=== PATIENT | male | born 1960 | race Caucasian/White ===

== ENCOUNTER 2017-11-17 19:23 | Observation (INO) | payer SELFPAY ==
[2017-11-17] MEDS ORDERED: Famotidine/PF 20 mg/2ml Vial ONE (19:53)
[2017-11-17] MEDS ORDERED: EPINEPHrine 1 MG/ML AMP ONE (22:08)
[2017-11-17] MEDS ORDERED: diphenhydrAMINE 50 MG/ML VIAL ONE (22:09)
[2017-11-18] MEDS ORDERED: EPINEPHrine 1 MG/ML AMP IM PRN ×2 (01:47→07:45)
[2017-11-18] MEDS ORDERED: Ondansetron ODT 4 MG TAB SL PRN (01:51)
[2017-11-18] MEDS ORDERED: Ondansetron HCl/PF 4 MG/2 ML Vial IVP PRN ×2 (01:51→07:01)
[2017-11-18] MEDS ORDERED: Sodium Chloride 0.45% 1,000 ML IV SCH (02:00)
[2017-11-18 02:31] VITALS: BMI 40.1
[2017-11-18] MEDS ORDERED: diphenhydrAMINE 50 MG/ML VIAL IVP SCH (06:00)
[2017-11-18] MEDS ORDERED: Acetaminophen 325 MG TAB PO PRN (07:01)
[2017-11-18] MEDS ORDERED: Sodium Chloride 0.65% Nasal 44 ML BOT EA NARE PRN (07:01)
[2017-11-18] MEDS ORDERED: hydrALAZINE 20 MG/ML VIAL SLOW IVP PRN (07:01)
[2017-11-18] MEDS ORDERED: Senokot 8.6 MG TAB PO PRN (07:01)
[2017-11-18] MEDS ORDERED: Dextrose 50% Abboject 50 ML SYRINGE SLOW IVP PRN (07:01)
[2017-11-18] MEDS ORDERED: Milk Of Magnesia 30 ML UDCUP PO PRN (07:01)
[2017-11-18] MEDS ORDERED: Ondansetron ODT 4 MG TAB PO PRN (07:01)
[2017-11-18] MEDS ORDERED: Dextrose 5% in Water 1,000 ML IV PRN (07:01)
[2017-11-18] MEDS ORDERED: Mag-Al 1200 mg/1200 mg/30 ML UDCUP PO PRN (07:01)
[2017-11-18] MEDS ORDERED: HumaLOG 300 UNITS/3 ML VIAL SC PRN ×2 (07:01)
[2017-11-18] MEDS ORDERED: Artificial Tears 18 DROP/0.9 ML EA EYE PRN (07:01)
[2017-11-18] MEDS ORDERED: Eucerin (Mineral Oil/Petrolatum,White) 30 gm Jar TOP PRN (07:01)
[2017-11-18] MEDS ORDERED: Zolpidem Tartrate 5 MG TAB PO PRN (07:01)
[2017-11-18] MEDS ORDERED: HYDROcodone/Acetaminophen 5/325 mg Tablet PO PRN (07:01)
[2017-11-18] MEDS ORDERED: Diabetic Tussin 200 MG/10 ML UDCUP PO PRN (07:01)
[2017-11-18] MEDS ORDERED: Loperamide HCl 2 MG CAP PO PRN (07:01)
[2017-11-18] MEDS ORDERED: Chloraseptic Spray 180 ml Bottle PO PRN (07:01)
[2017-11-18 07:25] LABS: #Lymphocytes 1.6 thou/uL (1.20-3.40); #Monocytes 0.6 thou/uL (0.11-0.59); #Neutrophils 11.3 thou/uL (1.40-6.50); %Basophils 0.2 % (0.0-1.0); %Eosinophils 0.2 % (0.0-10.0); %Lymphocytes 12.1 % (21.0-51.0); %Monocytes 4.5 % (0.0-10.0); Hematocrit 46.5 % (42.0-52.0); Mean Platelet Volume 7.4 fL (7.4-10.4); Red Blood Cell (RBC) Count 5.24 mill/uL (4.70-6.10); White Blood Cell (WBC) Count 13.6 thou/uL (4.8-10.8)
[2017-11-18 07:36] LABS: Hemoglobin A1c 5.7 % (4.0-6.0)
[2017-11-18 07:37] LABS: Anion Gap 12 mmol/L (10-20); BUN (Urea Nitrogen) 17 mg/dL (8.4-25.7); Calc. Creatinine Clearance 134 mL/min (70-130); Calcium 9.1 mg/dL (7.8-10.44); Carbon Dioxide 23 mmol/L (22-29); Chloride 107 mmol/L (98-107); Estimated GFR-MDRD 73
[2017-11-18] MEDS: Famotidine/PF 20 mg/2ml Vial SLOW IVP SCH ×2 (08:50→21:19)
[2017-11-18] MEDS: Sodium Chloride 0.9% 1,000 ML IV SCH ×2 (08:50→21:23)
[2017-11-18] MEDS ORDERED: methylPREDNISolone Sod Succ/PF 125 MG/2 ML VIAL IVP SCH (09:00)
--- NOTE | 2017-11-18 11:14 | HP ---
PRIMARY CARE PHYSICIAN: [facility] call admission. REASON FOR ADMISSION: Transfer from [facility] for allergic reaction /anaphylactic reaction. HISTORY OF PRESENT ILLNESS: A 57-year-old male who was initially evaluated at [facility] for generalized allergic reaction. The patient reports that symptoms started after eating a chicken at home. Patient took Benadryl before going to the emergency room, but his symptoms were not improving and that is why he went local emergency room. At local emergency room, patient was relatively hypotensive, tachypneic, and afebrile. He was given Solu-Medrol 125 mg, EpiPen 0.3 mg subcutaneous, Benadryl 50 mg IV and IV fluid, and subsequently this patient was planned for discharge, but the patient started eating crackers and after that his symptoms returned and that is why they sent him to our emergency room and subsequently the patient was admitted for close monitoring. This patient reports that he has recurrent symptoms of allergic reaction after eating unknown food. The patient does not know, which food making him allergic reaction, but sometimes symptoms gets better with Benadryl, but this episodes were more severe and more worse and that is why he required emergency room visit. The patient does have this problem for a period of time, but he was not able to see predictive maintenance specialist because of lack of funding. Patient reports that now he started working and he is going to follow up with allergies specialist after this discharge. Initially, patient felt lip swelling, throat tightness and dizziness. The patient felt like he was going to pass out and he felt like something in his throat and he felt like alligator. He denies any currently chest pain. When I saw this patient in the morning, he was feeling much better. His symptoms have not returned since last symptoms. He denies any shortness of breath, stridor, urticaria, itching, nausea, vomiting, diarrhea. REVIEW OF SYSTEMS: The following complete review of systems was negative, unless otherwise mentioned in the HPI or below: CONSTITUTIONAL: Weight loss or gain, ability to conduct usual activities. SKIN: Rash, itching. EYES: Double vision, pain. ENT/MOUTH: Nose bleeding, neck stiffness, pain, tenderness. CARDIOVASCULAR: Palpitations, dyspnea on exertion, orthopnea. RESPIRATORY: Shortness of breath, wheezing, cough, hemoptysis, fever or night sweats. GASTROINTESTINAL: Poor appetite, abdominal pain, heartburn, nausea, vomiting, constipation, or diarrhea. GENITOURINARY: Urgency, frequency, dysuria, nocturia. MUSCULOSKELETAL: Pain, swelling. NEUROLOGIC/PSYCHIATRIC: Anxiety, depression. ALLERGY/IMMUNOLOGIC: Skin rash, bleeding tendency. Please see my HPI for pertinent positives and negatives. All other review of system reviewed and negative except as mentioned in the HPI. PAST MEDICAL HISTORY: Reviewed and negative. PAST SURGICAL HISTORY: Tonsillectomy. PAST PSYCHIATRIC HISTORY: Reviewed and negative. SOCIAL HISTORY: Patient lives at home alone. No history of tobacco, alcohol or illicit drug abuse. FAMILY HISTORY: No strong family history of premature coronary artery disease, stroke or cancer. CURRENT HOME MEDICATION: patient is not taking any medication at home ALLERGY: No known drug allergy. PHYSICAL EXAMINATION: VITAL SIGNS: Currently, blood pressure 136/86, pulse 75, respiratory rate 17, temperature 98.2, saturation 96% on 2 liters oxygen. Weight 117.9 kilograms. GENERAL: Patient is currently alert, oriented, no acute distress. HEAD: Normocephalic, atraumatic. EYES: Pupils round, reactive to light. Extraocular muscles intact. ENT: Oropharynx within normal limits. Moist mucous membranes. No oral lesions. No pharyngeal erythema, no exudate. NECK: Supple, no JVD, no thyromegaly, no carotid bruit, no jugular venous distention. LUNGS: Clear to auscultation without any rhonchi or rales. CARDIAC: S1, S2 regular without any murmur. ABDOMEN: Soft, obesity present. Bowel sounds present, nontender, nondistended. No organomegaly, no mass, no suprapubic tenderness. BACK: Unremarkable, no CVA tenderness. EXTREMITIES: Upper extremity: Passive movement of all joints are normal. Lower extremity: No edema. Good peripheral pulsation. SKIN: No skin rash. HEMATOLOGICAL: No lymphadenopathy. PSYCHIATRIC: Normal affect. NEUROLOGIC: Nonfocal examination. SIGNIFICANT LABS: CBC: WBC 11.9, hemoglobin 17.0, platelet 230. BMP: Sodium 140, potassium 3.9, chloride 103, carbon dioxide 24, BUN 19, creatinine 1.73, glucose 247, calcium 8.6. LFT: AST 20, ALT 22, alkaline phosphatase 70, albumin 3.9. Hemoglobin A1c 5.7. ASSESSMENT AND PLAN/IMPRESSION: 1. Anaphylactic reaction. After food, the patient does not know the what type of food allergy he has and that is why I advised him to go to predictive maintenance specialist to identify his typical allergy to any component of food and at this point, the patient had treatment with Solu-Medrol, Benadryl in the Emergency Room and subsequently the patient had delayed reaction and that is why we kept in hospital. At this point, I will continue with Solu-Medrol 20 mg IV q.6 hourly, Benadryl 50 mg IV q.8 hourly and EpiPen p.r.n. basis. We will also continue Pepcid 20 mg IV b.i.d. We will monitor him for 24 hours and subsequently I will consider discharging him home tomorrow morning. 2. Hyperglycemia, most likely related with steroid, but hemoglobin A1c is 5.7. I provided weight loss education, healthy lifestyle measure discussion and diabetes education is given. At this point, the patient will need Accu-Chek while on steroids. We will monitor hyperglycemia. 3. Acute kidney injury. The patient is given IV fluid and now his creatinine is improved. 4. Morbid obesity with BMI of 40. Dietary education given, weight loss education given. Healthy lifestyle measures discussed with the patient. 5. Deep venous thrombosis prophylaxis not needed because we are expecting discharge tomorrow. 6. Gastrointestinal prophylaxis, Pepcid 20 mg IV b.i.d. 7. Code status: The patient is FULL CODE. Patient does not have any surrogate decision maker. Disposition plan within 24 hours. Plan of care discussed with the patient in detail. MTDD
[2017-11-18 13:23] LABS: Bilirubin Negative (Negative); Blood, Urine Negative (Negative); Glucose, Urine (Dipstick) 100 mg/dL (Negative); Ketone, Urine Negative (Negative); Nitrite Negative (Negative); Protein, Urine (Dipstick) Negative (Neg-Trace)
[2017-11-18 13:25] LABS: Bacteria/HPF None Seen HPF (None Seen); Hyaline Casts/LPF 0-3 HYALINE CAST LPF (0-3 Hyaline); RBC/HPF 0-3 HPF (0-3); Squamous Epithelial 0-3 HPF (0-3)
[2017-11-18] MEDS: diphenhydrAMINE 50 MG/ML VIAL IVP SCH ×2 (13:55→21:19)
[2017-11-19 04:39] LABS: #Lymphocytes 1.8 thou/uL (1.20-3.40); #Monocytes 0.6 thou/uL (0.11-0.59); #Neutrophils 12.5 thou/uL (1.40-6.50); %Basophils 0.1 % (0.0-1.0); %Eosinophils 0.2 % (0.0-10.0); %Lymphocytes 12.2 % (21.0-51.0); %Monocytes 4.2 % (0.0-10.0); Hematocrit 44.4 % (42.0-52.0); Red Blood Cell (RBC) Count 4.94 mill/uL (4.70-6.10)
[2017-11-19 05:18] LABS: Anion Gap 9 mmol/L (10-20); BUN (Urea Nitrogen) 19 mg/dL (8.4-25.7); Calc. Creatinine Clearance 156 mL/min (70-130); Calcium 8.8 mg/dL (7.8-10.44); Carbon Dioxide 27 mmol/L (22-29); Chloride 107 mmol/L (98-107); Estimated GFR-MDRD 86
[2017-11-19] MEDS: diphenhydrAMINE 50 MG/ML VIAL IVP SCH (05:59)
[2017-11-19] MEDS: Famotidine/PF 20 mg/2ml Vial SLOW IVP SCH (08:26)
[2017-11-19 08:38] VITALS: BP 123/65; TEMP 98
--- NOTE | 2017-11-19 11:40 | DIS ---
DATE OF ADMISSION: 11/17/2017 DATE OF DISCHARGE: 11/19/2017 PRIMARY CARE PHYSICIAN: [facility] call admission. DISCHARGE DISPOSITION: Home. PRIMARY DISCHARGE DIAGNOSES: 1. Anaphylactic reaction to food component. 2. Hyperglycemia due to steroid. 3. Acute kidney injury, resolved. SECONDARY DISCHARGE DIAGNOSIS: Morbid obesity with BMI 40. PRIMARY PROCEDURE/OPERATION: None. RADIOLOGICAL INVESTIGATION: None. SIGNIFICANT LABORATORY DATA: WBC 15.0, hemoglobin 14.6, platelets 185. Sodium 139, potassium 4.3, c arbon dioxide 27, anion gap 9, BUN 19, creatinine 0.91, calcium 8.8. Hemoglobin A1c 5.7. Urinalysis showing glucosuria. DISCHARGE MEDICATIONS: Benadryl 25 mg p.o. t.i.d. for 3 days, Pepcid 20 mg p.o. b.i.d. for 3 days, p rednisone 20 mg p.o. daily for 3 days. CONTRAINDICATIONS: None. CODE STATUS: FULL CODE. INPATIENT CONSULTANTS: None. ALLERGIES: No known drug allergies. DISCHARGE PLAN: Post hospital, the patient is instructed to make appointment with strategic sourcing specialist to find out allergic reaction. HOSPITAL COURSE: A 57-year-old male with above-mentioned medical problems, who was brought to emerge ncy room. Initially, he was evaluated at [facility] for food allergy. He was having tong ue swelling after eating some unknown food. The patient was treated with Solu-Medrol and Benadryl in the emergency room. He was about to be discharged from the emergency room, but he had recurrent sym ptoms and that is why he was sent to our emergency room. We observed him; in 24 hours, he was having mild acute kidney injury and that is why he was given IV fluid. We treated him with Solu-Medrol, Be nadryl, and Pepcid. Upon discharge, we gave him 3 more days of Benadryl, Pepcid, and prednisone. Th e patient's symptoms completely improved. At this point, I gave him emphasis to make sure that he is following strategic sourcing specialist to identify the allergies. Dietary education was given. He has prediabetes and that is why I have advised him for weight loss, exercise, and diabetic diet. The patient is seen and examined at bedside today. All review of systems reviewed with him and qamar thurston. All new medication prescriptions sent to his pharmacy. PHYSICAL EXAMINATION: VITAL SIGNS: Today, his temperature 98.0, pulse 64, respiratory rate 18, blood pressure 123/65, weig ht 264 pounds. GENERAL: The patient is currently alert, awake, in no acute distress. HEAD: Normocephalic, atraumatic. EYES: Pupils round, reactive to light. Extraocular muscle intact. ENT: Oropharynx within normal limits. Moist mucous membranes. No oral lesions. No pharyngeal eryt lefty, no exudate. NECK: Supple, no JVD, no thyromegaly, no carotid bruit. LUNGS: Clear to auscultation without any rhonchi or rales. NEUROLOGIC: Nonfocal examination. The patient is medically stable for discharge today.
== END 2017-11-19 09:41 | disposition home or self-care (01) ==
LOC: ERS 19:23 → 2SW 22:55
PROVIDERS: ADMIT Internal Medicine; ATTEND Internal Medicine
DX: T78.09XA Anaphylactic reaction due to other food products, initial encounter (principal); R73.9 Hyperglycemia, unspecified; N17.9 Acute kidney failure, unspecified; E66.01 Morbid (severe) obesity due to excess calories; Z68.41 Body mass index [BMI] 40.0-44.9, adult; Z90.89 Acquired absence of other organs
CPT/HCPCS: 36415; 36416; 80048; 81001; 83036; 85025; 96361; 96372; 96374; 96375; 96376; G0378; J0171; J1200; J2920; S0028

== ENCOUNTER 2019-10-31 18:30 | Observation (INO) | payer SELFPAY ==
[2019-10-31 19:59] LABS: Troponin I 0.013 ng/mL (< 0.028)
[2019-10-31 21:28] VITALS: BMI 40.3
[2019-10-31 22:53] LABS: Troponin I 0.024 ng/mL (< 0.028)
[2019-11-01] MEDS ORDERED: Bisacodyl 10 MG SUPP PR PRN (01:07)
[2019-11-01] MEDS ORDERED: HYDROcodone/Acetaminophen 5/325 mg Tablet PO PRN (01:07)
[2019-11-01] MEDS ORDERED: Bisacodyl 5 MG TAB PO PRN (01:07)
--- NOTE | 2019-11-01 01:18 | PDOC.HHP ---
Hospitalist HPI - History of Present Illness Dizziness, chest pain History of Present Illness: Patient is a 59 year old male with PMH CAD with stents placed in heart last year at [facility] who presented to the ED for 1 week of intermittent chest pain, dizziness, headaches. He reports that the symptoms are positional, and he gets dizzy when moving around that lasts a few seconds and resolves, denies LOC. When he gets a headache it lasts longer and resolves when he takes over the counter headache medicines. The chest pain is a tightness, also intermittent. Patient had several stents placed at [facility] last year, he is noncompliant with medication and followup due to funding, and reports once he ran out of original medications did not refill them. He states this is due to funding, but when asked about why he didnt take ASA which is very cheap, he just states he bought some bottles but forgets to take. He does not have outpatient vp emerging [facility]. He presented to outside hospital at [facility] and was noted to have had a run of VTach while there. Currently patient was sleeping, denies current symptoms, feels well. Of note has very severe reported allergy to pepper, is in allergy list. Hospitalist ROS - Review of Systems Constitutional: denies: fever, chills, weakness Eyes: denies: pain, vision change ENT: denies: mouth swelling, throat pain Respiratory: denies: cough, shortness of breath Cardiovascular: reports: chest pain, palpitations, other (orthostasis). denies : orthopnea Gastrointestinal: denies: nausea, vomiting, abdominal pain Genitourinary: denies: dysuria, frequency Musculoskeletal: denies: neck pain, shoulder pain Skin: denies: rash, lesions Neurological: denies: weakness, numbness, incoordination Other: headaches All other systems reviewed; all pertinent +/- noted in HPI/Subj - Medication Medications: not taking any Hospitalist History - Past Medical History Other Medical History: CAD, stents pepper allergy - Past Surgical History Other Surgical History: stent placement tonsillectomy - Family History Other Family History: reviewed and noncontributory - Social History Smoking Status: Never smoker Alcohol: reports: None Drugs: reports: none - Exam General Appearance: NAD, awake alert Eye: PERRL, anicteric sclera ENT: normocephalic atraumatic, moist mucosa Neck: supple, symmetric, no JVD Heart: RRR, no murmur, no gallops Respiratory: CTAB, no wheezes, no rales, no ronchi Gastrointestinal: soft, non-tender, non-distended, normal bowel sounds Extremities: no cyanosis, no clubbing, no edema Skin: no lesions, no rashes Neurological: cranial nerve grossly intact, normal sensation to touch, no weakness, no focal deficits Musculoskeletal: normal tone, normal strength Psychiatric: normal affect, normal behavior, A&O x 3 Hospitalist Results - Labs Lab results: Troponin I 0.024 ng/mL (< 0.028) 10/31/19 22:16 - EKG Interpretation EKG: NSR, rate 64, no ST changes of acuity Hospitalist H&P A/P - Plan Plan: Patient is a 59 year old male with PMH CAD with stents placed in heart last year at [facility] who presented to the ED for 1 week of intermittent chest pain, dizziness, headaches. # dizziness, headache, chest pain - intermittent fast resolution, along with reported VT will need to rule out cardiac/rhythm causes of symptoms - admit to telemetry - trend cardiac enzymes - consult cardiology - orthostatics w/ next routine vitals # reported VT - seen at [facility], monitor on telemetry here, consult cardiology , trend BMP and Mg and replete K and Mg as needed # history of CAD w/ stents - noncompliant w/ meds, was done at [facility], will order ASA, statin, beta jessica and consult cardiology - case management consult # history of severe pepper allergy - noted, in list above
[2019-11-01] MEDS ORDERED: Aspirin 325 MG TAB PO SCH (01:30)
[2019-11-01 02:02] LABS: Troponin I Less than 0.010 ng/mL (< 0.028)
[2019-11-01] MEDS: Acetaminophen 325 MG TAB PO PRN ×2 (04:52→20:14)
[2019-11-01 05:34] LABS: #Basophils 0.1 thou/uL (0.0-0.2); #Eosinphils 0.2 thou/uL (0.0-0.7); #Lymphocytes 4.1 thou/uL (1.20-3.40); #Monocytes 0.8 thou/uL (0.11-0.59); #Neutrophils 6.3 thou/uL (1.40-6.50); %Basophils 0.8 % (0.0-1.0); %Lymphocytes 35.9 % (21.0-51.0); %Monocytes 6.9 % (0.0-10.0); %Neutrophils 54.5 % (42.0-75.0); Hemoglobin 15.4 g/dL (14.0-18.0); Mean Corpuscular HGB CONC 33.2 g/dL (32.0-36.0); Mean Corpuscular Hemoglobin 28.9 pg (27.0-31.0); Mean Corpuscular Volume 86.9 fL (78.0-98.0); Mean Platelet Volume 8.3 fL (7.4-10.4); Platelet Count 197 thou/uL (130-400); RBC Distribution Width 12.4 % (11.5-14.5); Red Blood Cell (RBC) Count 5.35 mill/uL (4.70-6.10); White Blood Cell (WBC) Count 11.5 thou/uL (4.8-10.8)
[2019-11-01 05:57] LABS: Anion Gap 13 mmol/L (10-20); BUN (Urea Nitrogen) 17 mg/dL (8.4-25.7); Calc. Creatinine Clearance 123 mL/min (70-130); Carbon Dioxide 29 mmol/L (22-29); Chloride 103 mmol/L (98-107); Estimated GFR-MDRD 67; Glucose 109 mg/dL (70-105); Magnesium 2.2 mg/dL (1.6-2.6); Potassium 4.3 mmol/L (3.5-5.1); Sodium 141 mmol/L (136-145)
[2019-11-01 07:43] LABS: Troponin I 0.012 ng/mL (< 0.028)
[2019-11-01] MEDS ORDERED: diphenhydrAMINE 25 MG CAP PO PRN (08:30)
[2019-11-01] MEDS ORDERED: Famotidine 20 MG TAB PO PRN (08:30)
[2019-11-01] MEDS ORDERED: predniSONE 20 MG TAB PO PRN (08:30)
[2019-11-01] MEDS ORDERED: Aspirin 81 mg Enteric Coated Tablet PO SCH (09:00)
[2019-11-01] MEDS ORDERED: Meclizine HCl 25 MG TAB PO PRN (12:22)
[2019-11-01] MEDS ORDERED: methylPREDNISolone Sod Succ/PF 125 MG/2 ML VIAL IVP SCH (12:30)
[2019-11-01] MEDS ORDERED: Meclizine HCl 25 MG TAB PO SCH (12:30)
[2019-11-01] MEDS: Metoprolol Tartrate 25 MG TAB PO SCH ×2 (12:56→20:12)
[2019-11-01] MEDS: Enoxaparin Sodium 40 MG/0.4 ML SYRINGE SC SCH (12:56)
[2019-11-01] MEDS: FLU VACC QS2019-20(6MOS UP)/PF 60 MCG/0.5 ML SYRINGE IM ONE ×2 (12:56→13:09)
[2019-11-01] MEDS ORDERED: Regadenoson 0.4 MG/5 ML SYRINGE ONE (16:12)
[2019-11-01] MEDS ORDERED: Atorvastatin Calcium 40 MG TAB PO SCH (21:00)
--- NOTE | 2019-11-01 22:50 | CON ---
DATE OF CONSULTATION: 11/01/2019 PRIMARY LABORATORY ANIMAL CARE VETERINARIAN: Holden Moya MD at [facility]. REASON FOR CONSULTATION: Dizziness, history of coronary artery disease, chest tightness. HISTORY OF PRESENT ILLNESS: Mr. Rodriguez is a 59-year-old gentleman. He had an anterior myocardial infarction, non ST elevation one year ago at [facility]. The patient had reduced blood flow to the anterior wall, had 3 stents placed, 2.75 x 16 PROMUS, 2.75 x 28 PROMUS, and 3.0 x 28 PROMUS. The patient had ejection fraction of 40% at that time. The patient states he took the medicines he was given until they ran out, probably for 30 days and then quit. He has not been taking any medicine since then including aspirin. He does chew tobacco. His major complaint was that he had dizziness if he turns his head too quickly or sits up. This is why, came to the hospital for evaluation because his employer said he cannot work as long as he has had severe dizziness. The patient otherwise has been doing fairly well, but as mentioned stopped taking all medicines including aspirin. SOCIAL HISTORY: He chews tobacco. ALLERGIES: TO PEPPER. REVIEW OF SYSTEMS: CONSTITUTIONAL: No significant weight gain or loss. VISION: No changes. HEARING: No changes. PULMONARY: No cough or wheezing. GASTROINTESTINAL: No nausea, vomiting, or diarrhea. SKIN: No rashes. PHYSICAL EXAMINATION: VITAL SIGNS: This is a 5 feet 8 inches tall, 265-pound gentleman. Blood pressure 132/76, pulse 70. LUNGS: Clear. CARDIAC: Normal S1, normal S2. ABDOMEN: Soft, nontender. EXTREMITIES: No clubbing or cyanosis. There is no edema. Pedal pulses are all palpable. LABORATORY DATA: Troponin 0.024. EKG showed no changes. Stress test as part of it has not been done. The rest is pending. ASSESSMENT: 1. Dizziness sounds like vertigo. 2. EKG shows old anterior infarct. 3. History of noncompliance including not taking aspirin. 4. Hyperlipidemia, not on statins. PLAN: 1. Check lipids tomorrow. 2. Repeat the rest of the stress test tomorrow. 3. We will need to follow up Dr. Moya as an outpatient. 4. Consideration for ear, nose and throat consultation as an outpatient. 5. Further evaluation of vertigo per hospitalist. Job ID: [id number]
[2019-11-02 05:51] LABS: ALT (SGPT) 19 U/L (8-55); AST (SGOT) 12 U/L (5-34); Alkaline Phosphatase 82 U/L (40-110); Anion Gap 12 mmol/L (10-20); BUN (Urea Nitrogen) 18 mg/dL (8.4-25.7); Bilirubin, Total 0.5 mg/dL (0.2-1.2); Calc. Creatinine Clearance 124 mL/min (70-130); Calcium 9.6 mg/dL (7.8-10.44); Carbon Dioxide 28 mmol/L (22-29); Cardiac Risk 5.2 (Less than 4.5); Chloride 103 mmol/L (98-107); Cholesterol 249 mg/dl (< 200 Desired); Estimated GFR-MDRD 68; Globulin 2.7 g/dL (2.4-3.5); Glucose 184 mg/dL (70-105); HDL Cholesterol 48 mg/dL (>60 Neg Risk); LDL Cholesterol, Calculated 173 mg/dL; Magnesium 2.2 mg/dL (1.6-2.6); Potassium 5.1 mmol/L (3.5-5.1); Protein, Total 6.7 g/dL (6.0-8.3); Sodium 138 mmol/L (136-145); Triglycerides 139 mg/dL (Less than 150)
[2019-11-02 07:02] LABS: Band 7 % (5-11); Eosinophils 1 % (0-10); Hemoglobin 15.7 g/dL (14.0-18.0); Lymphocytes 10 % (21-51); MDiff Complete? YES; Mean Corpuscular HGB CONC 33.5 g/dL (32.0-36.0); Mean Corpuscular Hemoglobin 28.9 pg (27.0-31.0); Mean Corpuscular Volume 86.3 fL (78.0-98.0); Mean Platelet Volume 8.9 fL (7.4-10.4); Monocytes 5 % (0-10); Neutrophil 77 % (42-75); Platelet Count 223 thou/uL (130-400); RBC Distribution Width 12.2 % (11.5-14.5); Red Blood Cell (RBC) Count 5.43 mill/uL (4.70-6.10)
[2019-11-02] MEDS ORDERED: Aspirin 325 mg Enteric Coated Tablet PO SCH (09:00)
[2019-11-02] MEDS: Metoprolol Tartrate 25 MG TAB PO SCH (09:26)
[2019-11-02] MEDS: Enoxaparin Sodium 40 MG/0.4 ML SYRINGE SC SCH ×2 (09:26→09:34)
--- NOTE | 2019-11-02 09:45 | NM ---
EXAM: Nuclear medicine cardiac perfusion examination with ejection fraction HISTORY: Chest pain TECHNIQUE: Rest images: 29.5 mCi technetium 99m sestamibi Stress images: 33 mCi of technetium 9M sestamibi; Lexiscan COMPARISON: None FINDINGS: Tomographic images: There is a small size, moderate intensity reversible perfusion defect at the apex . Gated images: Normal wall motion and ejection fraction of 57%. EDV: 118 mL LHR: 0.4 TID: 0.9 IMPRESSION: Apical ischemia
--- NOTE | 2019-11-02 11:44 | PDOC.HOSPP ---
- Subjective Encounter Date: 11/02/19 Encounter Time: 09:00 Subjective: Patient seen and examined for Dizziness. No new dizziness/vertigo. No CP. No new complaints. No overnight events - Objective Vital Signs & Weight: Vital Signs (12 hours) Temp Pulse Resp BP Pulse Ox 11/02/19 07:10 97.6 F 56 L 20 123/71 96 11/02/19 04:00 97.4 F L 57 L 18 125/83 92 L Weight Weight 265 lb I&O: 11/01/19 11/02/19 11/03/19 06:59 06:59 06:59 Intake Total 240 842 Balance 240 842 Result Diagrams: 11/02/19 05:10 11/02/19 05:10 Additional Labs: Laboratory Tests 11/02/19 05:10 Cholesterol 249 H LDL Cholesterol, Calc 173 EKG Reviewed by me: Yes (Tele SR) Hospitalist ROS - Review of Systems Respiratory: denies: cough, dry, shortness of breath, hemoptysis, SOB with excertion, pleuritic pain, sputum, wheezing, other Cardiovascular: denies: chest pain, palpitations, orthopnea, paroxysmal noc. dyspnea, edema, light headedness, other Gastrointestinal: denies: nausea, vomiting, abdominal pain, diarrhea, constipation, melena, hematochezia, other - Medication Medications: Active Medications Generic Name Dose Route Start Last Admin Trade Name Freq PRN Reason Stop Dose Admin Acetaminophen 650 mg 11/01/19 01:07 11/01/19 20:14 Tylenol PO 650 mg Q4H PRN Administration Headache/Fever/Mild Pain (1-3) Aspirin 325 mg 11/02/19 09:00 11/02/19 09:26 Ecotrin PO 325 mg DAILY DILAN Administration Enoxaparin Sodium 40 mg 11/01/19 09:00 11/02/19 09:34 Lovenox SC Not Given 09 DILAN Metoprolol Tartrate 25 mg 11/01/19 09:00 11/02/19 09:26 Lopressor PO 25 mg BID DILAN Administration Pantoprazole Sodium 40 mg 11/02/19 09:00 11/02/19 09:26 Protonix PO 40 mg DAILY DILAN Administration - Exam General Appearance: NAD Neck: supple, no JVD Heart: RRR, no gallops, no rubs, normal peripheral pulses Respiratory: CTAB, no rales, no ronchi, normal chest expansion Gastrointestinal: soft, non-tender, non-distended, normal bowel sounds Extremities: no edema Neurological: no new deficit Psychiatric: normal affect, A&O x 3 Hosp A/P - Plan DVT proph w/SCDs Dizziness/Near syncope Chronic Vertigo CAD s/p stent placement Morbid obesity BMI 40.3 HLD Med noncompliance Leucocytosis - due to steroids PLAN: Await stress test/Echo Cont Metoprolol Cont ASA/Statins Cardiology input appreciated
[2019-11-02 11:58] VITALS: BP 125/61; TEMP 97.8
--- NOTE | 2019-11-02 19:04 | DIS ---
DATE OF ADMISSION: 10/31/2019 DATE OF DISCHARGE: 11/02/2019 DISCHARGE DISPOSITION: The patient signed against medical advice. BRIEF HOSPITAL COURSE: The patient is a 59-year-old male with coronary artery disease status post stent placement, not compliant with medications, presented to the hospital with dizziness along with intermittent chest pain. Please refer to the history and physical by Dr. Stoney Spence for further details. The patient was admitted to the telemetry unit with the above diagnosis. He underwent a stress test that showed apical ischemia. Cardiac catheterization was recommended, however, the patient declined. He signed against medical advice. FINAL DIAGNOSES: 1. Dizziness/near syncope, suspected to be due to cardiac arrhythmia. 2. Chest discomfort with abnormal stress test. The patient declined cardiac catheterization. 3. Coronary artery disease with stent placement. 4. Morbid obesity with a BMI of 40.3. 5. Hyperlipidemia. 6. Medication noncompliance. 7. Chronic vertigo. PLAN: Plan of care was discussed with the patient. He understands the risks, not limited to life-threatening complications including . Job ID: [id number]
[2019-11-02] MEDS ORDERED: Rosuvastatin 20 MG TAB PO SCH (21:00)
[2019-11-02] MEDS ORDERED: Atorvastatin Calcium 40 MG TAB PO SCH (21:00)
--- NOTE | 2019-11-04 09:32 | PRG ---
DATE OF SERVICE: 11/02/2019 ADDENDUM: Mr. Rodriguez's dizziness is much better. He said it is "ear pop" and the vertigo symptoms have dramatically improved. The dizziness did not appear cardiac and appeared to be vertigo. The stress test was read as a reversible defect at the apex. I looked at the studies, it looked to me more like a fixed apical defect with some jacob-infarction ischemia. The echocardiogram is suboptimal, but it looks like there is a lot mild area of hypokinesis of the tip of the apex, but the images are suboptimal. The patient was advised that the best way to be certain about the coronary artery disease would be a do a heart catheterization, he declines that. The patient has had a very large amounts of stents placed in his LAD by Dr. Moya. The patient indicates he may try to follow up with Dr. Moya as an outpatient. It has been stressed him to critically take aspirin. Also, given a prescription for statin and beta jessica. Job ID: [id number]
== END 2019-11-02 14:05 | disposition left against medical advice (07) ==
LOC: ERS 18:30 → 2SW 21:15
PROVIDERS: ADMIT Internal Medicine; ATTEND Internal Medicine
DX: R42 Dizziness and giddiness (principal); R55 Syncope and collapse; R07.89 Other chest pain; I25.10 Atherosclerotic heart disease of native coronary artery without angina pectoris; E78.5 Hyperlipidemia, unspecified; E66.01 Morbid (severe) obesity due to excess calories; I25.2 Old myocardial infarction; Z53.29 Procedure and treatment not carried out because of patient's decision for other reasons; Z68.41 Body mass index [BMI] 40.0-44.9, adult; Z91.14 Patient's other noncompliance with medication regimen; Z95.5 Presence of coronary angioplasty implant and graft; Z91.018 Allergy to other foods
CPT/HCPCS: 36415; 78452; 80048; 80053; 80061; 83735; 84484; 85025; 90471; 90686; 93005; 93017; 93306; 96372; 96374; A9500; G0008; G0378; J1650; J2785; J2930; J8597

== ENCOUNTER 2024-04-26 09:52 | Inpatient (IN) | payer BC, SELFPAY ==
[2024-04-26 10:26] VITALS: BMI 39.9
[2024-04-26] MEDS ORDERED: HumaLOG 300 UNITS/3 ML VIAL SC PRN (10:29)
[2024-04-26] MEDS ORDERED: Ipratropium/Albuterol 3 ML NEB NEB PRN (10:29)
[2024-04-26] MEDS ORDERED: hydrALAZINE 20 MG/ML VIAL SLOW IVP PRN (10:32)
[2024-04-26] MEDS: Magnesium 2 GM/50 ML(in water) 2 GM in Premix 1 BAG IVPB SCH (11:18)
[2024-04-26] MEDS: methylPREDNISolone Sod Succ 40 MG VIAL IVP SCH (11:19)
[2024-04-26] MEDS: Electrolyte Replacement Protocol 1 EACH IVPB ONE (11:22)
[2024-04-26 11:32] LABS: #Basophils Less than 0.03 10x3/uL (0.0-0.2); #Eosinphils Less than 0.03 10x3/uL (0.0-0.7); %Basophils 0.1 % (0.0-1.0); %Lymphocytes 31.7 % (21.0-51.0); %Monocytes 1.2 % (0.0-10.0); %Neutrophils 66.2 % (42.0-75.0); Hematocrit 45.1 % (42.0-52.0); Hemoglobin 14.7 g/dL (14.0-18.0); Mean Corpuscular HGB CONC 32.6 g/dL (32.0-36.0); Mean Corpuscular Hemoglobin 29.1 pg (27.0-31.0); Mean Corpuscular Volume 89.3 fL (78.0-98.0); Mean Platelet Volume 10.8 fL (7.4-10.4); Platelet Count 187 10x3/uL (130-400); RBC Distribution Width 13.5 % (11.5-14.5); Red Blood Cell (RBC) Count 5.05 mill/uL (4.70-6.10)
[2024-04-26 11:48] LABS: Lactic Acid 3.2 mmol/L (0.5-2.2)
[2024-04-26 12:07] LABS: CRP,High Sensitivity (Inhouse) 2.76 mg/dL (< or = 0.5)
[2024-04-26 12:15] LABS: ALT (SGPT) 10 U/L (8-55); AST (SGOT) 14 U/L (5-34); Albumin 3.4 g/dL (3.4-4.8); Alkaline Phosphatase 92 U/L (40-110); Anion Gap 16 mmol/L (10-20); BUN (Urea Nitrogen) 22 mg/dL (8.4-25.7); Bilirubin, Total 0.4 mg/dL (0.2-1.2); Calc. Creatinine Clearance 91 mL/min (70-130); Calcium 8.6 mg/dL (7.8-10.44); Carbon Dioxide 23 mmol/L (23-31); Chloride 103 mmol/L (98-107); Estimated GFR 55; Globulin 2.6 g/dL (2.4-3.5); Glucose 548 mg/dL (80-115); Potassium 4.9 mmol/L (3.5-5.1); Sodium 137 mmol/L (136-145)
[2024-04-26] MEDS ORDERED: Glucagon 1 MG/ML KIT IM PRN (12:24)
[2024-04-26] MEDS ORDERED: Dextrose 50% Abboject 50 ML SYRINGE SLOW IVP PRN (12:24)
[2024-04-26] MEDS ORDERED: Dextrose 5% in Water 1,000 ML IV PRN (12:24)
[2024-04-26] MEDS ORDERED: HumuLIN 70/30 100 Unit/ml 10 ml Vial SC SCH ×3 (12:30→21:00)
[2024-04-26] MEDS: Insulin Regular, Human 100 UNIT/ML 10 ML VIAL SC PRN (13:18)
[2024-04-26] MEDS: Insulin NPH Human Isophane 100 UNITS/ML (10 ML VIAL) SC SCH (13:22)
[2024-04-26] MEDS: Sodium Chloride 0.9% 1,000 ML IV SCH (13:26)
[2024-04-26] MEDS ORDERED: Insulin NPH Human Isophane 100 UNITS/ML (10 ML VIAL) SC SCH (21:00)
[2024-04-26] MEDS: Insulin Glargine 30 UNITS/0.3 ML VIAL SC SCH (21:43)
[2024-04-26] MEDS: Famotidine 20 MG TAB PO SCH (21:43)
[2024-04-27] MEDS: diphenhydrAMINE 25 MG CAP PO PRN (00:22)
[2024-04-27 06:36] LABS: #Basophils 0.03 10x3/uL (0.0-0.2); #Eosinphils Less than 0.03 10x3/uL (0.0-0.7); %Basophils 0.1 % (0.0-1.0); %Lymphocytes 29.2 % (21.0-51.0); %Monocytes 3.3 % (0.0-10.0); %Neutrophils 66.9 % (42.0-75.0); Hematocrit 40.5 % (42.0-52.0); Hemoglobin 13.8 g/dL (14.0-18.0); Mean Corpuscular HGB CONC 34.1 g/dL (32.0-36.0); Mean Corpuscular Hemoglobin 28.6 pg (27.0-31.0); Mean Platelet Volume 10.4 fL (7.4-10.4); Platelet Count 163 10x3/uL (130-400); RBC Distribution Width 13.1 % (11.5-14.5); Red Blood Cell (RBC) Count 4.82 mill/uL (4.70-6.10)
[2024-04-27 06:53] LABS: Lactic Acid 1.3 mmol/L (0.5-2.2)
[2024-04-27 07:16] LABS: Hemoglobin A1c 10.2 % (4.0-6.0)
[2024-04-27 07:18] LABS: ALT (SGPT) 12 U/L (8-55); AST (SGOT) 9 U/L (5-34); Albumin 3.2 g/dL (3.4-4.8); Alkaline Phosphatase 66 U/L (40-110); Anion Gap 14 mmol/L (10-20); BUN (Urea Nitrogen) 24 mg/dL (8.4-25.7); Bilirubin, Total 0.3 mg/dL (0.2-1.2); Calc. Creatinine Clearance 126 mL/min (70-130); Calcium 8.6 mg/dL (7.8-10.44); Carbon Dioxide 24 mmol/L (23-31); Chloride 104 mmol/L (98-107); Estimated GFR 83; Globulin 2.6 g/dL (2.4-3.5); Glucose 277 mg/dL (80-115); Magnesium 2.1 mg/dL (1.6-2.6); Potassium 4.5 mmol/L (3.5-5.1); Protein, Total 5.8 g/dL (5.8-8.1); Sodium 137 mmol/L (136-145)
[2024-04-27] MEDS: guaiFENesin ER 600 MG TAB PO SCH (08:15)
[2024-04-27 08:35] VITALS: TEMP 97.8
[2024-04-28] MEDS ORDERED: predniSONE 50 MG TAB PO SCH (08:00)
== END 2024-04-27 11:37 | disposition home or self-care (01) | DRG 916 ==
LOC: CCU 09:58
PROVIDERS: ADMIT Internal Medicine; ATTEND Internal Medicine
PROC: 3E033XZ Introduction of Vasopressor into Peripheral Vein, Percutaneous Approach (ICD-10-PCS; principal; 2024-04-26)
DX: T78.09XA Anaphylactic reaction due to other food products, initial encounter (principal); N17.9 Acute kidney failure, unspecified; E87.20 Acidosis, unspecified; D72.829 Elevated white blood cell count, unspecified; E11.65 Type 2 diabetes mellitus with hyperglycemia; I25.10 Atherosclerotic heart disease of native coronary artery without angina pectoris; Z91.010 Allergy to peanuts; Z91.018 Allergy to other foods; Z79.82 Long term (current) use of aspirin; Z79.4 Long term (current) use of insulin; Z79.84 Long term (current) use of oral hypoglycemic drugs; Z79.899 Other long term (current) drug therapy; Z95.5 Presence of coronary angioplasty implant and graft; Z87.891 Personal history of nicotine dependence
CPT/HCPCS: 36415; 36416; 80053; 83036; 83605; 83735; 85025; 86141; J1815; J2920; J3475; J7050